=== PATIENT | female | born 1950 | race Caucasian/White ===

== ENCOUNTER 2021-06-15 14:09 | Inpatient (IN) | payer OTHER ==
[~2021-06-15] VITALS: Ht 157.5 cm; Wt 65.8 kg
[~2021-06-15 14:09] MED LIST: AMITRIPTYLINE H10 MG; ASA81 MG; NORVASC2.5 M1; OMEGA-31000 MG PO; PRAVACHOL10 MG PO; PROVENTIL0.5 ML/2.5; SINGULAIR10 MG PO; SYNTHROID50 MCG PO; TESSALON PERLE100 M1 PO; ULTRAM50 MG PO
[2021-06-22] MEDS ORDERED: DOXEPIN HCL25 MG (16:19)
[2021-06-22] MEDS ORDERED: FAMOTIDINE20 MG (16:20)
[2021-06-22] MEDS ORDERED: ALEVE220 MG (16:20)
[2021-06-22] MEDS ORDERED: OMEPRAZOLE20 M1 (16:20)
[2021-06-22] MEDS ORDERED: EZETIMIBE10 MG (16:20)
[2021-06-22] MEDS ORDERED: PRILOSEC OTC20 MG (16:23)
[2021-06-22] MEDS ORDERED: ADVAIR HFA 115/12 GM (16:23)
[2021-06-22] MEDS ORDERED: PAIN RELIEVER500 M2 (16:23)
== END 2021-06-23 22:02 | disposition home or self-care (01) | DRG 203 ==
LOC: ER 14:09 → MEDJ 06-16 10:08 → MEDI 06-16 16:02
PROVIDERS: ADMIT Internal Medicine; ATTEND Internal Medicine
DX: J45.51 Severe persistent asthma with (acute) exacerbation (principal); J38.3 Other diseases of vocal cords; I10 Essential (primary) hypertension; Z79.52 Long term (current) use of systemic steroids; E03.8 Other specified hypothyroidism; Z20.822 Contact with and (suspected) exposure to COVID-19